=== PATIENT | male | born 1970 | race African-American/Black ===

== ENCOUNTER 2018-05-29 15:43 | Emergency (ER) | payer SELFPAY ==
--- NOTE | 2018-05-29 19:20 | Diagnostic Imaging Report ---
CT BRAIN WO HISTORY: Fall, syncope COMPARISON: None. TECHNIQUE: Noncontrast axial scans were obtained from skull base to the vertex. Coronal and sagittal reconstructions obtained from the axial data. One or more of the following dose reduction techniques were used: Automated exposure control, adjustment of the mA and/or kV according to patient size, and/or utilization of iterative reconstruction technique. DISCUSSION: Scalp/Skull: Unremarkable. Brain sulci: Appropriate for patient's age. Ventricles: Normal in size and configuration. No hydrocephalus. Extra-axial spaces: No masses or fluid collections. Parenchyma: Carotid siphon calcifications are present. No masses, hemorrhage, or large vascular territory acute infarct. Dural sinuses: No abnormal densities. Sellar/Suprasellar region: Intact. Skull base: Intact. Incidental findings: Both ocular lenses are thinned. The adenoid tonsils are prominent. IMPRESSION: No acute intracranial abnormalities. Signed by: Dr. Sang Jimenez M.D. on 05/29/2018 7:16 PM
--- NOTE | 2018-05-29 19:26 | Diagnostic Imaging Report ---
CT CERVICAL SPINE WO HISTORY: Fall, syncope COMPARISON: None. TECHNIQUE: CT of the cervical spine without contrast. Sagittal and coronal reformations were created. One or more of the following dose reduction techniques were used: Automated exposure control, adjustment of the mA and/or kV according to patient size, and/or utilization of iterative reconstruction technique. FINDINGS: Cervical lordosis is straightened. There is no scoliosis or subluxation. No fractures, compression deformity, or destructive osseous lesions are seen. The craniocervical junction is intact. No gross spinal canal masses are seen. The paravertebral and paraspinal soft tissues are unremarkable. Mild multilevel spondylotic changes are most prominent at C3-C4. Multilevel, mildly prominent marginal osteophytes with relatively preserved disc spaces suggest diffuse idiopathic skeletal hyperostosis. There is associated mild posterior longitudinal ligament ossification at C3 and C4. At least mild canal stenosis at C3-C4 is due to posterior disc osteophyte complex. Mild atlantoaxial arthrosis is present as well. The adenoid and palatine tonsils are prominent. IMPRESSION: 1. No acute osseous abnormalities. 2. Mild multilevel spondylosis with diffuse idiopathic skeletal hyperostosis. 3. At least mild degenerative canal stenosis at C3-C4. Signed by: Dr. Sang Jimenez M.D. on 05/29/2018 7:23 PM
[2018-05-29] MEDS ORDERED: SODIUM CHLORIDE 0.9% 1000ML 1,000 ML IV ONE (20:15)
--- NOTE | 2018-05-29 20:28 | NUR ---
URINE SPECIMEN SENT
[2018-05-29 20:30] LABS: BASOPHILS % 0.4 % (0.0-1.0); EOSINOPHILS # (AUTO) 0.1 (0.0-0.4); EOSINOPHILS % 1.2 % (0.0-6.0); HEMATOCRIT 45.6 % (38.2-49.6); HEMOGLOBIN 15.2 g/dL (14.0-18.0); LYMPHOCYTES # (AUTO) 2.3 (1.0-3.2); LYMPHOCYTES % 31.6 % (18.0-39.1); MEAN CORPUSCULAR HEMOGLOBIN 29.7 pg (28-32); MEAN CORPUSCULAR HGB CONC 33.3 g/dL (31-35); MEAN CORPUSCULAR VOLUME 89.1 fL (81-99); MONOCYTES # (AUTO) 0.6 (0.2-0.8); MONOCYTES % 8.5 % (4.4-11.3); NEUTROPHILS # (AUTO) 4.3 (2.1-6.9); PLATELET COUNT 195 x10e3/uL (140-360); RED BLOOD COUNT 5.12 x10e6/uL (4.3-5.7); RED CELL DISTRIBUTION WIDTH 13.8 % (11.7-14.4)
[2018-05-29 20:34] LABS: BILIRUBIN,URINE NEGATIVE (NEGATIVE); CLARITY,URINE SL CLOUDY (CLEAR); COLOR,URINE YELLOW (YELLOW); KETONES,URINE NEGATIVE (NEGATIVE); LEUKOCYTE ESTERASE ,URINE NEGATIVE (NEGATIVE); NITRITE,URINE NEGATIVE (NEGATIVE); PROTEIN,URINE DIPSTICK NEGATIVE (NEGATIVE); URINE UROBILINOGEN 0.2 mg/dL (0.2 - 1)
[2018-05-29 20:42] LABS: BACTERIA,URINE FEW /HPF; EPITHELIAL CELLS,URINE MANY /LPF
[2018-05-29 20:45] LABS: ALANINE AMINOTRANSFERASE 47 IU/L (0-55); ALBUMIN 3.8 g/dL (3.5-5.0); ALBUMIN/GLOBULIN RATIO 1.2 (0.8-2.0); ALKALINE PHOSPHATASE 78 IU/L (40-150); ANION GAP 14.8 mmol/L (8-16); BLOOD UREA NITROGEN 9 mg/dL (7-26); BUN/CREATININE RATIO 9 (6-25); CALCIUM 9.1 mg/dL (8.4-10.2); CARBON DIOXIDE 23 mmol/L (22-29); CHLORIDE 104 mmol/L (98-107); CREATINE KINASE 162 IU/L (30-200); CREATININE, SERUM 1.01 mg/dL (0.72-1.25); EST GLOMERULAR FILTRATION RATE > 60 ML/MIN (60-); GLUCOSE 119 mg/dL (74-118); POTASSIUM 3.8 mmol/L (3.5-5.1); SODIUM 138 mmol/L (136-145)
--- NOTE | 2018-05-29 20:52 | Diagnostic Imaging Report ---
EXAM: XR CHEST 1 VIEW DATE: 05/29/2018 8:10 PM INDICATION: Numbness COMPARISON: None FINDINGS: Lines and Tubes: None Heart and Mediastinum: Accentuated by lung volumes. Lungs and Pleura: Within limitations of body habitus, underpenetration, low lung voids comment portable technique, no definite acute finding. Bones and Soft Tissues: No acute findings. IMPRESSION: 1. Within limitations, no definite acute finding. Signed by: Dr. Yonny Brock MD on 05/29/2018 8:49 PM
== END 2018-05-29 22:49 | disposition home or self-care (01) ==
LOC: ER 15:43
DX: R55 Syncope and collapse (principal); E11.9 Type 2 diabetes mellitus without complications
CPT/HCPCS: 36415; 70450; 71045; 72125; 80053; 81001; 82550; 82553; 82948; 84484; 85025; 93005; 99283; J7030